=== PATIENT | male | born 1975 | race Caucasian/White ===

== ENCOUNTER → 2022-08-22 09:56 | Outpatient (BNVA) | payer OTHER, SELFPAY | PROVIDERS: Visit Provider Counselor Professional | DX: Z79.899 Other long term (current) drug therapy (principal) | CPT/HCPCS: 80061; 83036 ==

== ENCOUNTER → 2022-09-18 13:14 | Outpatient (BNVA) | payer MEDICARE, SELFPAY | PROVIDERS: PCP Nurse Practitioner; Visit Provider Nurse Practitioner | DX: R35.0 Frequency of micturition (principal); I10 Essential (primary) hypertension; F25.9 Schizoaffective disorder, unspecified | CPT/HCPCS: 81000 ==